=== PATIENT | male | born 1995 ===

== ENCOUNTER 2016-08-26 20:39 | Inpatient (IN) | payer OTHER ==
[~2016-08-26] VITALS: Ht 185.4 cm; Wt 79.2 kg
[2016-08-26] MEDS ORDERED: LORAZEPAM 0.5 MG TAB SL STA (22:21)
[2016-08-26] MEDS ORDERED: ATOM25CA PO (22:45)
[2016-08-26 23:09] LABS: BASO % 0.3 %; BASO ABS # 0.02 K/uL (0-0.2); COMPLETE YES; HEMATOCRIT 42.5 % (42-52); LYMPH % 30.1 %; LYMPH ABS # 1.77 K/uL (1.2-3.4); MEAN CORPUSCULAR HEMOGLOBIN 30.8 pg (25-34); MEAN CORPUSCULAR HGB CONC 35.1 g/dl (32-36); MEAN PLATELET VOLUME 11.2 fL (7.4-10.4); NEUT % 60.6 %; PLATELET COUNT 178 K/uL (130-400); RED BLOOD COUNT 4.83 M/uL (4.7-6.1); WHITE BLOOD COUNT 5.88 K/uL (4.8-10.8)
[2016-08-26 23:25] LABS: BUN/CREATININE RATIO 10.5 (10-20); CALCIUM 9.1 mg/dl (8.5-10.1); CREATININE 0.98 mg/dl (0.60-1.40); POTASSIUM 4.2 mmol/L (3.5-5.1)
[2016-08-26 23:36] LABS: ALB/GLOB RATIO 1.3 (0.9-2); THYROID STIMULATING HORMONE 1.02 uIu/ml (0.300-4.500)
[2016-08-27 00:36] LABS: MANUAL MICROSCOPIC REQUIRED? YES; URINE APPEARANCE CLEAR (CLEAR); URINE BILIRUBIN NEG (NEG); URINE COLOR YELLOW; URINE NITRITE NEG (NEG); URINE PH 7.5 (4.5-7.5); UROBILINOGEN NEG (NEG)
[2016-08-27 00:38] LABS: REVIEW REQ? NO; SULFASALICYLIC ACID NEG (NEG)
[2016-08-27 00:45] LABS: URINE RBC 0-4 /hpf (0-4)
[2016-08-27 00:46] LABS: URINE AMORPHOUS SEDIMENT PRESENT (NONE PRSENT); URINE BACTERIA NEG (NEG); ZZUR CULT IF INDIC CLEAN CATCH NO
[2016-08-27 01:04] VITALS: O2SAT 98
[2016-08-27 01:15] LABS: BENZODIAZEPINE, URINE POS (NEG); COCAINE,URINE NEG (NEG); PHENCYCLIDINE, URINE NEG (NEG)
[2016-08-27] MEDS ORDERED: BISMUTH SUBSALICYLATE PER ML OMNICELL CHARGE PO PRN (01:45)
[2016-08-27] MEDS ORDERED: ACETAMINOPHEN 325 MG TAB PO PRN (01:45)
[2016-08-27] MEDS ORDERED: hydrOXYzine HCL 25 MG TAB PO PRN (01:45)
[2016-08-27] MEDS ORDERED: NURSING VERBAL MED ORDER ONE (01:45)
[2016-08-27] MEDS ORDERED: MAGNESIUM HYDROXIDE SUSP 30 ML UDC PO PRN (01:45)
[2016-08-27] MEDS ORDERED: ALUMINUM/MAGNESIUM SUSP 30 ML UDC PO PRN (01:45)
[2016-08-27] MEDS ORDERED: SODIUM CHLORIDE 0.65% NA SOLN 45 ML (OCEAN) PRN (01:45)
[2016-08-27] MEDS: hydrOXYzine HCL 25 MG TAB PO PRN ×2 (02:22→22:49)
[2016-08-27 02:30] VITALS: BP 145/75; PULSE 83; TEMP 36.8; Ht 185.4 cm; Wt 79.2 kg
--- NOTE | 2016-08-27 03:43 | EMERGENCY ROOM VISIT NOTE ---
History Report prepared by Vanita: Ronnie Li Under the Supervision of: Dr. Porfirio Dougherty M.D. First contact with patient: 21:39 Chief Complaint: MENTAL HEALTH EVALUATION Stated Complaint: SUICIDAL THOUGHTS History of Present Illness The patient is a 20 year old male who presents to the Emergency Room with concerns over his mental status that began to worsen today at 1500 today, 7.5 hours prior to arrival. The patient admits that he has been having suicidal thoughts today, but denies any homicidal ideation. He has not experienced any single traumatic event that affected his current mental status, but states that stress with school is an issue. The patient has seen a psychiatrist regularly in the past who took him off of his prescription of Zoloft 2-3 months prior to this visit. She suggested that he start Cymbalta, but he declines. He claims that he was recently starting the loading for Strattera as a new medication. He denies abusing any drugs or alcohol recently but does admit to smoking marijuana regularly. The patient does note experiencing chills and constipation commonly. Source of History: patient Onset: 7.5 hours [employer] Position: other (Psych ) Timing: worsening Associated Symptoms: + chills Note: Pt admits to suicidal ideation. Review of Systems See HPI for pertinent positives and negatives. A total of ten systems were reviewed and were otherwise negative. Past Medical & Surgical Medical Problems: (1) Anxiety (2) Depression Anxiety Depression Family History FH: depression Social History Smoking Status: Never Smoker Marital Status: single Housing Status: lives with roommate Occupation Status: [employer] student Current/Historical Medications Scheduled Atomoxetine (Strattera), 25 MG PO DAILY Allergies Coded Allergies: No Known Allergies (Unverified , 08/26/16) Physical Exam Vital Signs Date Time Temp Pulse Resp B/P Pulse Ox O2 Delivery O2 Flow Rate FiO2 08/27/16 01:04 75 18 145/75 98 Room Air 08/26/16 22:53 82 18 142/92 96 Room Air 08/26/16 20:42 36.8 75 18 138/89 100 Room Air Physical Exam GENERAL: Awake, alert, well appearing, no distress HENT: Normocephalic, atraumatic. TM's normal. Oropharynx unremarkable. EYES: PERRL. EOMI. Normal conjunctiva. Sclera non-icteric. NECK: Supple. No nuchal rigidity. FROM. No JVD or bruit. RESPIRATORY: CTA CARDIAC: RRR. No murmur. ABDOMEN: Soft, non distended. No tenderness to palpation. No rebound or guarding. No masses. MUSCULOSKELETAL: Unremarkable. No edema. No discoloration. Gross motor strength symmetric. NEURO: Cranial nerves 2-12 grossly intact. Normal sensorium. No sensory or motor deficits noted. Speech normal. No pronator drift. SKIN: No rash or jaundice noted. LYMPH: No adenopathy. PSYCH: depressed mood flat affect. positive suicidal ideation. negative homicidal ideation. Medical Decision & Procedures Laboratory Results 08/26/16 22:47 Red Blood Count 4.83, Mean Corpuscular Volume 88.0, Mean Corpuscular Hemoglobin 30.8, Mean Corpuscular Hemoglobin Concent 35.1, Mean Platelet Volume 11.2, Neutrophils (%) (Auto) 60.6, Lymphocytes (%) (Auto) 30.1, Monocytes (%) (Auto) 7.0, Eosinophils (%) (Auto) 2.0, Basophils (%) (Auto) 0.3, Neutrophils # (Auto) 3.56, Lymphocytes # (Auto) 1.77, Monocytes # (Auto) 0.41, Eosinophils # (Auto) 0.12, Basophils # (Auto) 0.02 08/26/16 22:47 Test 08/26/16 22:47 08/27/16 00:12 White Blood Count 5.88 K/uL (4.8-10.8) Red Blood Count 4.83 M/uL (4.7-6.1) Hemoglobin 14.9 g/dL (14.0-18.0) Hematocrit 42.5 % (42-52) Mean Corpuscular Volume 88.0 fL (80-100) Mean Corpuscular Hemoglobin 30.8 pg (25-34) Mean Corpuscular Hemoglobin Concent 35.1 g/dl (32-36) Platelet Count 178 K/uL (130-400) Mean Platelet Volume 11.2 fL (7.4-10.4) Neutrophils (%) (Auto) 60.6 % Lymphocytes (%) (Auto) 30.1 % Monocytes (%) (Auto) 7.0 % Eosinophils (%) (Auto) 2.0 % Basophils (%) (Auto) 0.3 % Neutrophils # (Auto) 3.56 K/uL (1.4-6.5) Lymphocytes # (Auto) 1.77 K/uL (1.2-3.4) Monocytes # (Auto) 0.41 K/uL (0.11-0.59) Eosinophils # (Auto) 0.12 K/uL (0-0.5) Basophils # (Auto) 0.02 K/uL (0-0.2) RDW Standard Deviation 40.3 fL (36.4-46.3) RDW Coefficient of Variation 12.5 % (11.5-14.5) Immature Granulocyte % (Auto) 0.0 % Immature Granulocyte # (Auto) 0.00 K/uL (0.00-0.02) Anion Gap 7.0 mmol/L (3-11) Est Creatinine Clear Calc Drug Dose 137.0 ml/min Estimated GFR () 129.0 Estimated GFR (Non- 111.3 BUN/Creatinine Ratio 10.5 (10-20) Calcium Level 9.1 mg/dl (8.5-10.1) Total Bilirubin 0.3 mg/dl (0.2-1) Aspartate Amino Transf (AST/SGOT) 21 U/L (15-37) Alanine Aminotransferase (ALT/SGPT) 18 U/L (12-78) Alkaline Phosphatase 87 U/L (45-117) Total Protein 7.2 gm/dl (6.4-8.2) Albumin 4.0 gm/dl (3.4-5.0) Globulin 3.2 gm/dl (2.5-4.0) Albumin/Globulin Ratio 1.3 (0.9-2) Thyroid Stimulating Hormone (TSH) 1.020 uIu/ml (0.300-4.500) Ethyl Alcohol mg/dL < 3.0 mg/dl (0-3) Urine Color YELLOW Urine Appearance CLEAR (CLEAR) Urine pH 7.5 (4.5-7.5) Urine Specific [place] 1.020 (1.000-1.030) Urine Protein NEG (NEG) Urine Glucose (UA) NEG (NEG) Urine Ketones NEG (NEG) Urine Occult Blood NEG (NEG) Urine Nitrite NEG (NEG) Urine Bilirubin NEG (NEG) Urine Urobilinogen NEG (NEG) Urine Leukocyte Esterase NEG (NEG) Urine RBC 0-4 /hpf (0-4) Urine WBC 1-5 /hpf (0-5) Urine Epithelial Cells 0-5 /lpf (0-5) Urine Amorphous Sediment PRESENT (NONE PRSENT) Urine Bacteria NEG (NEG) Urine Opiates Screen NEG (NEG) Urine Methadone, Qualitative NEG (NEG) Urine Barbiturates NEG (NEG) Urine Phencyclidine (PCP) Level NEG (NEG) Ur Amphetamine/Methamphetamine POS (NEG) MDMA (Ecstasy) Screen POS (NEG) Urine Benzodiazepines Screen POS (NEG) Urine Cocaine Metabolite NEG (NEG) Urine Marijuana (THC) POS (NEG) Laboratory results reviewed by me Medications Administered Medications (Trade) Dose Ordered Sig/Yousuf Route Start Time Stop Time Status Last Admin Dose Admin Lorazepam (Ativan Tab) 0.5 mg NOW STAT SL 08/26/16 22:21 08/26/16 22:22 DC 08/26/16 22:27 0.5 MG ED Course 2215: The patient was evaluated in room A7. A complete history and physical exam was performed. 2221: Ordered Lorazepam 0.5 mg SL. 0022: [address] [place] [address] has evaluated the patient at this time, there are no grounds for a 302 petition. They will discuss the option of voluntary impatient treatment with the patient. 0142: The patient has been admitted to [address] [place] [address] voluntarily at this time. Medical Decision Triage Nursing notes reviewed and agree them. The patient's history was concerning for possible psychiatric disturbance. Differential diagnosis: Etiologies such as mood disorder, infection, hypoglycemia, electrolyte abnormalities, cardiac sources, intracerebral event, toxicologic, neurologic, as well as others were entertained. Physical examination: The physical examination was performed as above and was completely benign. No emergent medical pathologies were noted. ER treatment provided: Oral Ativan 0.5 mg 2 sublingual On reassessment the patient felt better. Diagnostic interpretation by me: The labs revealed an unremarkable CBC, chemistry panel, LFTs, TSH, urinalysis, Tylenol, salicylate, and alcohol levels. The patient had amphetamines, MDMA, benzodiazepine, and THC on urine drug screen. Imaging studies: Deferred Consultation: A consultation was placed with mental health. The patient was evaluated by mental health in the emergency department and they felt admission was warranted. The patient was voluntarily admitted for further treatment. The chart was completed utilizing BitGo voice recognition software. Grammatical errors, random word insertions, pronoun errors, and incomplete sentences are an occasional consequence of this system due to software limitations, ambient noise, and hardware issues. Any formal questions or concerns about the content, text, or information contained within the body of this dictation should be directly addressed to the physician for clarification. Consults Time Called: 21 Consulting Physician: [address] [place] [address] Bernardino Returned Call: 0022 I discussed the case with the [address] [place] [address] delegate at this time. She claims that there is no grounds for a 302 petition, but will suggest voluntary inpatient treatment for the patient. Impression Primary Impression: Mood disorder Scribe Attestation The scribe's documentation has been prepared under my direction and personally reviewed by me in its entirety. I confirm that the note above accurately reflects all work, treatment, procedures, and medical decision making performed by me. Departure Information Dispostion [facility] ([address] [place] [address] ) Referrals Center [facility] (PCP) Forms HOME CARE DOCUMENTATION FORM, IMPORTANT VISIT INFORMATION Patient Instructions [facility]
[2016-08-27 06:55] VITALS: BP_SYST 111; BP_SYST 121; BP_DIAS 75; BP_DIAS 80; PULSE 60; PULSE 80; TEMP 36.6
[2016-08-27] MEDS: ATOMOXETINE 25 MG CAP PO SCH (09:06)
[2016-08-27] MEDS ORDERED: ESCITALOPRAM OXALATE 10 MG TAB PO ONE (11:00)
--- NOTE | 2016-08-27 12:47 | HISTORY & PHYSICAL EXAMINATION ---
DATE OF ADMISSION: 08/27/2016 IDENTIFYING DATA: Kade Richardson is a 20-year-old [employer] student from the [place] area, who is admitted to our unit on a 201 voluntary commitment with worsening depression, suicidality and anxiety. Information is gathered from the patient and considered to be reliable. CHIEF COMPLAINT: "It started last year, although less intense." HISTORY OF PRESENT ILLNESS: Kade Richardson is a 20-year-old [employer] student who has a history of depression and anxiety, treated by Dr. Bryanna Garcia in his hometown. He has had several trials of medications including Wellbutrin and Zoloft and is currently only on Strattera that was started about 7 days ago for perceived ADD symptoms. He admits that he first started having problems with his depression last year during spring, when he admits that there was a 7-week period, where he barely left his apartment or went to class. He was in treatment at that time, but did start having suicidal ideation during that semester. He cites his stressors as academic. He has a finance major and is striving for the best possible GPA. He hangs out with other friends in the finance department to have a better GPA when he does and feels like he is the lowest performer in his group. He also has financial stressors, describes feeling homesick, feeling like he does not know what to do. He does not have a good relationship with his mother, who he describes as a functional alcoholic, who turned to alcohol after his own mother when Kade was in middle school. He feels that she has been an absent parent since then. He also notes he has nothing to look forward to. Since returning to school in June, he notes that his depression and anxiety have continued to worsen. He describes his mood as "a rollercoaster." He had been talking with his psychiatrist at home and was wondering if some of his inattentiveness and poor concentration were as a result of ADD and so, she is trialing him on Strattera 25 mg daily that he has been on for the last week or so. He feels that maybe his depression got slightly better with the Strattera, but denies that it has exacerbated his anxiety. Yesterday, he said that it was a bad day. Sundays are normally a bad day because there is a fraternity meeting and he devotes that day to focusing on schoolwork. He generally anticipate it with anxiety and dread. He had been talking with his father by phone and telling him about his depression and his thoughts about suicide and father encouraged him to call the emergency line, which he did. They recommended he go to the Emergency Room and so, the patient took an Uber to our hospital. The patient remains depressed and anxious today. He admits to suicidal thoughts, but denies that he has plan or intent. He reports his sleep has been "minimum" and by this, he means he gets about 5 or 7 hours of broken sleep per night. His appetite has been poor, but his weight has recently been stable. He reports chronic anxiety, dating back to middle school at least. He experiences his anxiety with elevated heart rate, sweating, and feeling nervous. He generally uses vaping to cope. He endorses only rare panic attacks, saying he has only ever had a handful and cannot remember any precipitating factors. He denies any auditory or visual hallucination, but tends to over think things and calls this as "paranoia." He gives an example where he was over thinking that his presentation while talking about his psychiatric symptoms worrying that they would be interpreted wrongly. He says that he has a "temper," but denies that he has ever acted inappropriately in anger either verbally or behaviorally. He reports poor focus, concentration, and saying that he is inattentive. He has trouble in social situations, remembering names or will lose track of the conversation in mid tracks. He denies that he has ever engaged in self-injurious behaviors. He has never struggled with any eating disordered behaviors. He denies discrete episodes of euphoric mood, sleeplessness or pleasure seeking behaviors that could be congruent with bipolar disorder. CURRENT MEDICATIONS: Strattera 25 mg daily. PAST PSYCH HISTORY: Again, sees Dr. Bryanna Garcia in the [place] area. He does not currently have a therapist. He has never been hospitalized for mental health reasons. He has never made a suicide attempt. There is no evidence of violence to self or others in the last 6 months. PRIOR MEDICATION TRIALS: 1. Wellbutrin -- had eye pain and worrying that he was having seizures. 2. Zoloft -- nausea, stopped after 2 days. ACCESS TO GUNS: Denies. ALLERGIES: NKDA. PAST MEDICAL HISTORY: 1. Denies for personal history of obesity, diabetes, dyslipidemia, hypertension, or cardiovascular disease. 2. History of a slight concussion in his freshman year in high school, but without sequelae including seizures. 3. Tobacco use -- uses a vaporizer, the equivalent of 1 pack of cigarettes per day. FAMILY HISTORY: Positive for mother with anxiety, depression, and alcohol abuse. There is no family history for suicide. Medically, maternal grandmother has diabetes, both parents have hypertension, paternal grandfather had a stroke, and father has dyslipidemia. There is no family history for obesity. SUBSTANCE ABUSE HISTORY: The patient endorses the use of alcohol 1-2 times per week. Last use was on Saturday. He generally drinks beer. He has never suffered any legal consequences as a result of alcohol. He also endorses the regular use of marijuana, last on Saturday. He also took a Vyvanse that he got from a friend. PERSONAL HISTORY: The patient grew up in [place]. He was raised by both his mother and father. His mother works for [employer] and father is a retired middle school music teacher. He does not have a good relationship with his mother, barely talking with her, but does report a good relationship with his father. He is the oldest of 3 sons. He has finance major with a current GPA of 3.69. He does not work outside of school. He is not currently in a relationship, although he says "it is complicated." He has never been and has no children. He is of the [place] faust[place]. There are no legal concerns. Psychological trauma history includes having felt neglected by his mother in middle school after she lost her own mother. MENTAL STATUS EXAMINATION: A 20-year-old gentleman with short curly hair, who is appropriately dressed. Gait and station are within normal limits. Eye contact is good. Motor behavior is unremarkable. No abnormal muscle movements. Speech is of normal rate, volume, and tone. Affect is flat. Mood is depressed and anxious. Thought process is organized and goal directed. He denies thought disorder in the form of hallucinations or delusions. He endorses suicidal thoughts, but no plan or intent at this time. He denies homicidal ideation. Today, he is fully oriented. Memory functions are intact. Fund of knowledge is intact. Intelligence is estimated to be average. Insight and judgment are currently impaired. VITAL SIGNS: Temperature 36.6, pulse 60 supine and 80 sitting, and blood pressure 111/75 supine and 121/80 sitting. LABORATORIES: 1. CBC with diff -- notable only for elevated MPV of 11.2. 2. Chem profile -- within normal limits. 3. TSH -- within normal limits. 4. Toxicology -- positive for amphetamines (took Vyvanse), MDMA (frequently a false positive), benzodiazepines (received Ativan in the ER prior to drug screen), and cannabis, which he admits to smoking. 5. Urinalysis -- without evidence of infection. REVIEW OF SYSTEMS: Positive for constipation with last bowel movement yesterday. He also believes he experienced some retrograde ejaculation saying that he thinks he seems ejaculate in his urine. A minimum of 10 systems has been reviewed and otherwise found to be negative. PHYSICAL EXAMINATION: Exam performed by Dr. Dougherty in the Emergency Room has been reviewed and accepted for our purposes here in the mental health unit. PATIENT'S STRENGTHS AND NEEDS: 1. Strengths -- intelligence, desire to do well, good relationship with father. 2. Needs -- to be and more consistent local psychiatric treatment. RISK ASSESSMENT: 1. Risk factors -- male, , single, chronic mental illness, use of cannabis, and high anxiety. 2. Protective factors -- no access to guns, no comorbid medical conditions impairing recovery, no history of hospitalizations or suicide, good rapport with father, and doing well in school. IMPRESSION: A 20-year-old [employer] student admitted with severe depression, anxiety, and suicidality. We have reviewed multiple treatment options including an SNRI, a second trial of an SSRI, and therapy. He is willing for a second trial of an SSRI and we will order Lexapro 5 mg daily, titrating as tolerated. We will start low in deference to his history of nausea that caused him to stop taking Zoloft. Risks, benefits, and alternatives have been reviewed and accepted including the risk for worsening depression and suicidal thinking in young people. I have recommended that he get a local psychiatric provider and therapist until he goes home for the summer, where he can resume treatment with Dr. Garcia. I have recommended he not use alcohol or cannabis moving forward while he is on medications. I have also asked him to consider a family meeting with his father, which he will consider. He also admits to using a legal substance called Kratom, which is derived from the coffee plant, which he uses to help stimulate him in the morning. We will recommend he stop using this as well. At this time, the patient requires inpatient mental health treatment due to the severity of his condition and the risk for self-harm if discharged. DIAGNOSES: 1. Major depressive disorder, recurrent, severe, without psychotic features. 2. Generalized anxiety disorder. 3. Cannabis abuse. PLAN: Has been reviewed with Dr. Tracy Fairchild. 1. Depression. a. Start Lexapro 5 mg daily, titrating slowly to avoid nausea. b. Encourage participation in group and individual counseling. c. Q. 15 minute checks for safety. d. The patient should have a local psychiatric provider and therapy and return to his outpatient providers at home during the summer. e. Family meeting. g. Assist the patient to explore additional healthy coping strategies. 2. Generalized anxiety disorder. a. Vistaril p.r.n. for anxiety or sleep. b. Assist the patient to explore mindfulness, deep breathing and relaxation exercises. c. Lexapro as above. 3. Cannabis abuse. a. Recommend abstinence. We have discussed the impact of substances to mood and anxiety. INITIAL HOSPITAL CARE: [id number]. [facility]
[2016-08-27] MEDS ORDERED: NICOTINE 21 MG/24 HR TDSY TD ONE (14:03)
[2016-08-27] MEDS ORDERED: NICOTINE POLACRILEX 2 MG GUM MT PRN (14:15)
[2016-08-28 06:58] VITALS: BP_SYST 114; BP_SYST 115; BP_DIAS 67; BP_DIAS 82; PULSE 65; PULSE 85; TEMP 36.6
[2016-08-28] MEDS ORDERED: ESCITALOPRAM OXALATE 10 MG TAB PO SCH (09:00)
[2016-08-28] MEDS: ATOMOXETINE 25 MG CAP PO SCH (09:02)
[2016-08-28] MEDS: NICOTINE 21 MG/24 HR TDSY TD SCH (09:20)
--- NOTE | 2016-08-28 13:08 | Psychiatric Progress Notes ---
Progress Note Date of Service Aug 28, 2016. Interval History 20 yo male admitted voluntarily on 08/27 with severe depression and suicidality in the context of academic stress Chief Complaint "Calmer". Subjective Patient was seen & assessed interval progress reviewed with Treatment Team. Kade says that he is feeling somewhat calmer today after adjusting to the unit. He is tolerating the start of Lexapro without side effects. He remains tired and asks if its the lexapro, but at the same time says that he remains sleep impaired, sleeping for only 1 hr at a time. He is having periods were he feels that his heart if racing, but wonders if its the nicotine patch that he is wearing. He denies acute SI today and says that it usually comes when he is worrying about something or trying to understand what he is doing with school and life. Appetite has been good and denies N/V. Review of Systems Constitutional: + fatigue ENT: No dental problems, No hearing loss, No nasal symptoms, No problem reported, No sore throat, No tinnitus, No trouble swallowing, No unusual epistaxis Respiratory: No cough, No dyspnea at rest, No dyspnea on exertion, No hemoptysis, No problem reported, No shortness of breath, No sputum, No wheezing Cardiovascular: + problem reported (racing heart) Abdomen: No GI bleeding, No constipation, No diarrhea, No nausea, No pain, No problem reported, No vomiting Musculoskeletal: No calf pain, No joint pain, No muscle pain, No problem reported, No swelling Neurologic: No balance problems, No memory loss, No numbness/tingling, No paralysis, No problem reported, No vertigo, No weakness Psychiatric: + anxiety, + depression symptoms, + insomnia Integumentary: No bleeding, No color change, No itch, No new/changing skin lesions, No problem reported, No rash Sleep Information Total Hours of Sleep: 5.00 Meal Information Percent of Breakfast Consumed: 100 Percent of Lunch Consumed: 100 Percent of Dinner Consumed: 100 Mental Status Exam During interview pt is: alert and oriented, cooperative Appearance: appropriately dressed, appropriately groomed Eye contact is: good Motor behavior is: steady gait & station, no abnormal motor movements Speech: normal in rate, rhythm & volume Affect: depressed, flat Mood is: depressed Thought process: clear, coherent Thought content: reality based without delusions Suicidal thought are: denied Homicidal thoughts are: denied Hallucinations: denies auditory, denies visual Cognition: memory grossly intact, attention grossly intact Intelligence estimated to be: average Insight: impaired Judgement: impaired Impression Adjusting to the unit. Has not had SI since admission, but likely because he has been removed from the stressful school environment. Tolerating Lexapro 5 mg. X 2 and so will increase to 10 mg. for tomorrow. Has not consented to family meeting with father but has been in contact with him. Encouraged the use of prn vistaril for sleep. Plan (1) Major depressive disorder, recurrent severe without psychotic features 08/28 -Increase Lexapro to 10 mg. daily -Q 15 min checks for safety - Encourage participation in group and individual counseling - The patient will need psychiatric aftercare locally if he is staying in school - Family meeting - Assist the patient to explore additional healthy coping strategeis (2) MAGDA (generalized anxiety disorder) 08/28 -Vistaril prn for anxiety and sleep - Assist the patient to explore mindfulness, deep breathing and relaxation - Lexapro as above (3) Cannabis abuse 08/28 - Recommend abstinence - Discussed the impact of substances to mood. Visit Code E&M Code: 29759 Inventory Assets Strengths: Intelligence, willingness to engage in treatment Needs: to abstain from cannabis Risk Factors Assessment Male: Yes : Yes /single/: Yes Higher / Fall in social status: No Access to guns: No Health problems: No Mental Health Diagnoses: Yes Substance use disorders: Yes Previous attempt: No Previous psychiatric stay: No Hopelessness: Yes Protective Factors Assessment Roman Catholic beliefs: Yes : No Responsible for young children: No Employed: No Stable relationships: No Supportive family: Yes Data Vital Signs Last 24 Hrs: Date Time Temp Pulse Resp B/P Pulse Ox O2 Delivery O2 Flow Rate FiO2 08/28/16 06:58 36.6 65 16 114/67 85 115/82 Meds Administered Last 24 Hrs: Meds Administered (Past 24Hrs) Medications (Trade) Dose Ordered Sig/Yousuf Route Start Time Stop Time Status Last Admin Dose Admin Lorazepam (Ativan Tab) 0.5 mg NOW STAT SL 08/26/16 22:21 08/26/16 22:22 DC 08/26/16 22:27 0.5 MG Hydroxyzine HCl (Vistaril Tab) 50 mg HSZ PRN PO 08/27/16 01:45 09/26/16 01:44 08/27/16 22:49 50 MG Hydroxyzine HCl (Vistaril Tab) 25 mg Q4H PRN PO 08/27/16 01:45 09/26/16 01:44 08/27/16 20:45 25 MG Atomoxetine HCl (Strattera Cap) 25 mg QAM PO 08/27/16 09:00 09/26/16 08:59 08/28/16 09:02 25 MG Escitalopram Oxalate (Lexapro Tab) 5 mg QAM PO 08/28/16 09:00 09/27/16 08:59 08/28/16 09:02 5 MG Escitalopram Oxalate (Lexapro Tab) 5 mg 1100 ONCE PO 08/27/16 11:00 08/27/16 11:19 DC 08/27/16 11:44 5 MG Nicotine (Nicoderm Cq 21MG Patch) 1 patch QAM TD 08/28/16 09:00 09/27/16 08:59 08/28/16 09:20 1 PATCH Nicotine (Nicoderm Cq 21MG Patch) 1 patch 1403 ONCE TD 08/27/16 14:03 08/27/16 14:09 DC 08/27/16 14:31 1 PATCH Miscellaneous (Remove Nicoderm Patch) 1 ea HS N/A 08/27/16 22:00 09/26/16 21:59 08/27/16 21:15 1 EA Nicotine Polacrilex (Nicorette 2MG Gum) 1 piece Q2HWA PRN MT 08/27/16 14:15 09/26/16 14:14 08/27/16 20:45 1 PIECE Lab Results Last 24 Hrs: 08/26/16 22:47 Red Blood Count 4.83, Mean Corpuscular Volume 88.0, Mean Corpuscular Hemoglobin 30.8, Mean Corpuscular Hemoglobin Concent 35.1, Mean Platelet Volume 11.2, Neutrophils (%) (Auto) 60.6, Lymphocytes (%) (Auto) 30.1, Monocytes (%) (Auto) 7.0, Eosinophils (%) (Auto) 2.0, Basophils (%) (Auto) 0.3, Neutrophils # (Auto) 3.56, Lymphocytes # (Auto) 1.77, Monocytes # (Auto) 0.41, Eosinophils # (Auto) 0.12, Basophils # (Auto) 0.02 08/26/16 22:47 Test 08/26/16 22:47 08/27/16 00:12 White Blood Count 5.88 K/uL (4.8-10.8) Red Blood Count 4.83 M/uL (4.7-6.1) Hemoglobin 14.9 g/dL (14.0-18.0) Hematocrit 42.5 % (42-52) Mean Corpuscular Volume 88.0 fL (80-100) Mean Corpuscular Hemoglobin 30.8 pg (25-34) Mean Corpuscular Hemoglobin Concent 35.1 g/dl (32-36) Platelet Count 178 K/uL (130-400) Mean Platelet Volume 11.2 fL (7.4-10.4) Neutrophils (%) (Auto) 60.6 % Lymphocytes (%) (Auto) 30.1 % Monocytes (%) (Auto) 7.0 % Eosinophils (%) (Auto) 2.0 % Basophils (%) (Auto) 0.3 % Neutrophils # (Auto) 3.56 K/uL (1.4-6.5) Lymphocytes # (Auto) 1.77 K/uL (1.2-3.4) Monocytes # (Auto) 0.41 K/uL (0.11-0.59) Eosinophils # (Auto) 0.12 K/uL (0-0.5) Basophils # (Auto) 0.02 K/uL (0-0.2) RDW Standard Deviation 40.3 fL (36.4-46.3) RDW Coefficient of Variation 12.5 % (11.5-14.5) Immature Granulocyte % (Auto) 0.0 % Immature Granulocyte # (Auto) 0.00 K/uL (0.00-0.02) Anion Gap 7.0 mmol/L (3-11) Est Creatinine Clear Calc Drug Dose 137.0 ml/min Estimated GFR () 129.0 Estimated GFR (Non- 111.3 BUN/Creatinine Ratio 10.5 (10-20) Calcium Level 9.1 mg/dl (8.5-10.1) Total Bilirubin 0.3 mg/dl (0.2-1) Aspartate Amino Transf (AST/SGOT) 21 U/L (15-37) Alanine Aminotransferase (ALT/SGPT) 18 U/L (12-78) Alkaline Phosphatase 87 U/L (45-117) Total Protein 7.2 gm/dl (6.4-8.2) Albumin 4.0 gm/dl (3.4-5.0) Globulin 3.2 gm/dl (2.5-4.0) Albumin/Globulin Ratio 1.3 (0.9-2) Thyroid Stimulating Hormone (TSH) 1.020 uIu/ml (0.300-4.500) Ethyl Alcohol mg/dL < 3.0 mg/dl (0-3) Urine Color YELLOW Urine Appearance CLEAR (CLEAR) Urine pH 7.5 (4.5-7.5) Urine Specific [place] 1.020 (1.000-1.030) Urine Protein NEG (NEG) Urine Glucose (UA) NEG (NEG) Urine Ketones NEG (NEG) Urine Occult Blood NEG (NEG) Urine Nitrite NEG (NEG) Urine Bilirubin NEG (NEG) Urine Urobilinogen NEG (NEG) Urine Leukocyte Esterase NEG (NEG) Urine RBC 0-4 /hpf (0-4) Urine WBC 1-5 /hpf (0-5) Urine Epithelial Cells 0-5 /lpf (0-5) Urine Amorphous Sediment PRESENT (NONE PRSENT) Urine Bacteria NEG (NEG) Urine Opiates Screen NEG (NEG) Urine Methadone, Qualitative NEG (NEG) Urine Barbiturates NEG (NEG) Urine Phencyclidine (PCP) Level NEG (NEG) Ur Amphetamine/Methamphetamine POS (NEG) MDMA (Ecstasy) Screen POS (NEG) Urine Benzodiazepines Screen POS (NEG) Urine Cocaine Metabolite NEG (NEG) Urine Marijuana (THC) POS (NEG)
[2016-08-28] MEDS: hydrOXYzine HCL 25 MG TAB PO PRN (22:51)
[2016-08-29 06:56] VITALS: BP_SYST 117; BP_SYST 123; BP_DIAS 78; BP_DIAS 84; PULSE 62; PULSE 82; TEMP 36.4
--- NOTE | 2016-08-29 08:32 | Psychiatric Progress Notes ---
Progress Note Date of Service Aug 29, 2016. Interval History 20 yo male admitted voluntarily on 08/27 with severe depression and suicidality in the context of academic stress Chief Complaint "[]". Subjective Patient was seen & assessed interval progress reviewed with Treatment Team. Staff report he slept 6 hours with Vistaril, and is going to groups and participating appropriately. He agreed to referrals for therapy and psychiatry. He has a meeting with his father today, and doesn't want him to know about his drug use. Lexapro has been tolerated well and was increased to 10mg for today. Sleep Information Total Hours of Sleep: 6.00 Meal Information Percent of Breakfast Consumed: 100 Percent of Lunch Consumed: 100 Percent of Dinner Consumed: 95 Mental Status Exam During interview pt is: alert and oriented, cooperative Appearance: appropriately dressed, appropriately groomed Eye contact is: good Motor behavior is: steady gait & station, no abnormal motor movements Speech: normal in rate, rhythm & volume Affect: depressed, flat Mood is: depressed Thought process: clear, coherent Thought content: reality based without delusions Suicidal thought are: denied Homicidal thoughts are: denied Hallucinations: denies auditory, denies visual Cognition: memory grossly intact, attention grossly intact Intelligence estimated to be: average Insight: impaired Judgement: impaired Impression Adjusting to the unit. Has not had SI since admission, but likely because he has been removed from the stressful school environment. Tolerating Lexapro 5 mg. X 2 and so will increase to 10 mg. for tomorrow. Has not consented to family meeting with father but has been in contact with him. Encouraged the use of prn vistaril for sleep. Plan (1) Major depressive disorder, recurrent severe without psychotic features 08/28 -Increase Lexapro to 10 mg. daily -Q 15 min checks for safety - Encourage participation in group and individual counseling - The patient will need psychiatric aftercare locally if he is staying in school - Family meeting - Assist the patient to explore additional healthy coping strategies (2) MAGDA (generalized anxiety disorder) 08/28 -Vistaril prn for anxiety and sleep - Assist the patient to explore mindfulness, deep breathing and relaxation - Lexapro as above (3) Cannabis abuse 08/28 - Recommend abstinence - Discussed the impact of substances to mood. Discharge / Aftercare Planning Therapist: Name: [facility] Date of Appointment: Sep 06, 2016 Time of Appointment: 1230 Appointment Notes: [address], [place] [address] Inventory Assets Strengths: Intelligence, willingness to engage in treatment Needs: to abstain from cannabis Risk Factors Assessment Male: Yes : Yes /single/: Yes Higher / Fall in social status: No Access to guns: No Health problems: No Mental Health Diagnoses: Yes Substance use disorders: Yes Previous attempt: No Previous psychiatric stay: No Hopelessness: Yes Protective Factors Assessment Pentecostalism beliefs: Yes : No Responsible for young children: No Employed: No Stable relationships: No Supportive family: Yes Data Vital Signs Last 24 Hrs: Date Time Temp Pulse Resp B/P Pulse Ox O2 Delivery O2 Flow Rate FiO2 08/29/16 06:56 36.4 62 16 123/78 82 117/84 Meds Administered Last 24 Hrs: Meds Administered (Past 24Hrs) Medications (Trade) Dose Ordered Sig/Yousuf Route Start Time Stop Time Status Last Admin Dose Admin Atomoxetine HCl (Strattera Cap) 25 mg QAM PO 08/27/16 09:00 09/26/16 08:59 08/28/16 09:02 25 MG Escitalopram Oxalate (Lexapro Tab) 5 mg QAM PO 08/28/16 09:00 08/28/16 13:09 DC 08/28/16 09:02 5 MG Escitalopram Oxalate (Lexapro Tab) 5 mg 1100 ONCE PO 08/27/16 11:00 08/27/16 11:19 DC 08/27/16 11:44 5 MG Nicotine (Nicoderm Cq 21MG Patch) 1 patch QAM TD 08/28/16 09:00 09/27/16 08:59 08/28/16 09:20 1 PATCH Nicotine (Nicoderm Cq 21MG Patch) 1 patch 1403 ONCE TD 08/27/16 14:03 08/27/16 14:09 DC 08/27/16 14:31 1 PATCH Miscellaneous (Remove Nicoderm Patch) 1 ea HS N/A 08/27/16 22:00 09/26/16 21:59 08/28/16 21:28 1 EA Nicotine Polacrilex (Nicorette 2MG Gum) 1 piece Q2HWA PRN MT 08/27/16 14:15 09/26/16 14:14 08/27/16 20:45 1 PIECE
[2016-08-29] MEDS: ATOMOXETINE 25 MG CAP PO SCH (08:45)
[2016-08-29] MEDS: NICOTINE 21 MG/24 HR TDSY TD SCH ×2 (08:47→11:32)
[2016-08-29] MEDS ORDERED: ESCITALOPRAM OXALATE 10 MG TAB PO SCH (09:00)
--- NOTE | 2016-08-29 13:04 | Discharge Instructions ---
Discharge Information Report Includes Report will include the: Discharge Instructions & Summary Admission Admission Date / Time: Aug 27, 2016 at 01:32 Reason for Admission: Anxiety Nos Discharge Discharge Diagnosis / Problem: Depression, egneralized anxiety disorder, cannabus use disorder. Condition at Discharge: Fair Discharge Goals Goal(s): Improve function, Improve disease control, Learn about illness, Therapeutic intervention Activity Recommendations Activity Limitations: per Instructions/Follow-up section . Instructions / Follow-Up Instructions / Follow-Up . SPECIAL CARE INSTRUCTIONS: 1. Follow through with your scheduled aftercare appointments. If unable to keep an appointment, please call to reschedule. 2. Take your medication only as prescribed. Medication should not be changed or stopped without the approval of your doctor. In the event of worsening symptoms or concerns about side effects, contact your doctor immediately. 3. Utilize new healthy coping skills, anger management skills, and stress management skills learned during your hospitalization. Journal feelings and process them with a support person. Identify stressors or situations that may result in relapse, deterioration or inappropriate behaviors and develop a plan to deal with those issues. 4. If your coping skills are ineffective and you are in crisis, contact your outpatient providers for direction. If unable to reach your providers, please call the CAN HELP LINE AT or go to the closest Emergency Room. 5. Avoid alcohol and un-prescribed drugs, including marijuana. 6. You have been provided with the Mental Health Advance Directives Pamphlet for your review. AFTERCARE APPOINTMENTS: * Please call your insurance company prior to your scheduled appointment to confirm your aftercare providers are covered. Take your insurance information to your appointments. . Discharge / Aftercare Planning Primary Care Physician: Name: [facility] Phone Number: [phone] Appointment Notes: as needed Psychiatrist: Name: Dr Syd Lundberg, [address], [address], [place] [address] Phone Number: [phone] Date of Appointment: Sep 06, 2016 Time of Appointment: 3pm Appointment Notes: take ID card, parents' and SS number, Copay Therapist: Name Of Therapist: Porfirio at [facility] - take insurance card w you Date of Appointment: Sep 06, 2016 Time of Appointment: 1230 Appointment Comments: [address], [place] [address] Other: Name of Appointment #1: [facility] [employer] Date of Appointment #1: Sep 11, 2016 Time of Appointment #1: 11:00 Appointment #1 Notes: Presley Adorno . Follow-Up Care Plan for Follow-Up Care: See above. Current Hospital Diet Patient's current hospital diet: Regular Diet Discharge Diet Recommended Diet: Regular Diet Procedures Procedures Performed: No Pending Studies Pending Studies at Discharge: No Medical Emergencies . Who to Call and When: Medical Emergencies: For questions or emergencies related to your hospital stay, please contact the Inpatient Behavioral Health Unit at [phone]. A machine ii engraver is on-call 31/12 for the Behavioral Health Unit for emergencies At any time you feel your situation is an emergency, you may also call 911 immediately. . Non-Emergent Contact Non-Emergency issues call your: Psychiatrist, Therapist Advance Directives Existing Advance Directive: No Do You Have an Existing Mental: No Existing Living Will: No Existing Power of Infantry Officer: No Advance Directives Info Given: To Pt/S.O. Discharge Summary Admission HPI Per the Admitting provider: Please see admission H&P. Admission Exam Per the Admitting provider: Please see admission H&P. Hospital Course (1) Major depressive disorder, recurrent severe without psychotic features 08/28 - Increase Lexapro to 10 mg. daily - Q 15 min checks for safety - Encourage participation in group and individual counseling - The patient will need psychiatric aftercare locally if he is staying in school - Family meeting - Assist the patient to explore additional healthy coping strategies 08/29 - Continue Lexapro 10mg daily. Had long discussion of the risks, benefits, and potential side effects of medication. The patient feels he is very sensitive to medications, and worries that every somatic symptoms might be a side effect. Encouraged him to continue the medication at least until his appointment with Dr. Velarde next week, and again reminded him that it will take 4 -6 weeks to see the full effect of the antidepressant. - Patient would like to stop Strattera, as does not think it is helping, and wants to minimize the number of medications he is on. - Family meeting with father held, he supports discharge. - Patient able to review safety plan and coping skills. He is requesting discharge. - Has outpatient therapy and psychiatry appointments next week 09/06. (2) MAGDA (generalized anxiety disorder) 08/28 - Vistaril prn for anxiety and sleep - Assist the patient to explore mindfulness, deep breathing and relaxation - Lexapro as above (3) Cannabis abuse 08/28 - Recommend abstinence - Discussed the impact of substances to mood. Risk Factors Assessment Male: Yes : Yes /single/: Yes Higher / Fall in social status: No Access to guns: No Health problems: No Mental Health Diagnoses: Yes Substance use disorders: Yes Previous attempt: No Previous psychiatric stay: No Hopelessness: Yes Protective Factors Assessment Taoist beliefs: Yes : No Responsible for young children: No Employed: No Stable relationships: No Supportive family: Yes Good rapport with provider: No Absence of risk factors above: Yes (risk factors were mitigated by treating mood and anxiety with medication, involving the patient in groups and therapy on the unit, working on healthy coping skills and her discharge safety plan, referring him for outpatient therapy and psychiatry, and having a family meeting with his father. He is denying suicidality, reports improvements in mood and anxiety, is eating and sleeping well, and performing ADLs independently. He is willing to follow-up with outpatient providers. He is requesting discharge, and as he is no longer at acute risk of harm to himself, can be managed as an outpatient at this time.) Day of Discharge Assessment Hospital course: On admission, the patient was started on escitalopram for depression and anxiety. He was started on a low dose of 5 mg daily, as he was anxious about having side effects, and is it was tolerated well, it was increased to 10 mg daily. He reported improvement in mood, anxiety, and felt more calm on the unit. He continued to feel tired during the day, and wondered if it was a side effect, also wondering if his heart racing was a side effect of medications. Appetite was good on the unit, he continued to have poor sleep at night. He attended groups and interacted appropriately with staff and peers. He had a family meeting with his father by phone the day of discharge. Day of discharge assessment: Patient reports that his mood is improved from admission and describes it as "calm." He denies suicidal thoughts. He is not sure about taking medication, listing multiple concerns, including worries about side effects, as he felt he had a brief period of "staring off into space" during group today and feels tired during the day, wondering if these are side effects. He also has a history of side effects on other medications, so feels he is more sensitive to medications than most. He has a long discussion about what he could expect from antidepressant if it is working, as well as the risk of side effects, and the difficulty in determining if the medication is working or if it is causing side effects after only a couple doses. He is willing to follow-up with outpatient providers, and has both therapy and psychiatric appointments next week. He denies thoughts of harming himself or anyone else, and is requesting discharge today, wanting to return to class tomorrow. Reviewed the family meeting with his social work assistant, who states that both the patient and his father think he is doing better, and father is in favor of discharge. Well nourished, well developed WM appearing stated age. Casually dressed and adequately groomed. Calm and cooperative. Seated in NAD, with fair eye contact and no abnormal movements. Speech is normal rate, volume, and tone. Mood is "calm," and affect is stable and congruent. Thoughts are linear, logical and goal directed. The patient denied suicidal and homicidal ideation and was able to safety plan. No paranoia, delusions, or hallucinations, and did not appear to be responding to internal stimuli. Cognition was grossly intact. Alert and oriented to person, place and time. Intelligence is consistent with level of education. Insight and and judgment are fair. Laboratory Test 08/26/16 22:47 08/27/16 00:12 White Blood Count 5.88 Red Blood Count 4.83 Hemoglobin 14.9 Hematocrit 42.5 Mean Corpuscular Volume 88.0 Mean Corpuscular Hemoglobin 30.8 Mean Corpuscular Hemoglobin Concent 35.1 Platelet Count 178 Mean Platelet Volume 11.2 H Neutrophils (%) (Auto) 60.6 Lymphocytes (%) (Auto) 30.1 Monocytes (%) (Auto) 7.0 Eosinophils (%) (Auto) 2.0 Basophils (%) (Auto) 0.3 Neutrophils # (Auto) 3.56 Lymphocytes # (Auto) 1.77 Monocytes # (Auto) 0.41 Eosinophils # (Auto) 0.12 Basophils # (Auto) 0.02 RDW Standard Deviation 40.3 RDW Coefficient of Variation 12.5 Immature Granulocyte % (Auto) 0.0 Immature Granulocyte # (Auto) 0.00 Sodium Level 140 Potassium Level 4.2 Chloride Level 102 Carbon Dioxide Level 31 Anion Gap 7.0 Blood Urea Nitrogen 10 Creatinine 0.98 Est Creatinine Clear Calc Drug Dose 137.0 Estimated GFR () 129.0 Estimated GFR (Non- 111.3 BUN/Creatinine Ratio 10.5 Random Glucose 72 Calcium Level 9.1 Total Bilirubin 0.3 Aspartate Amino Transferase (AST) 21 Alanine Aminotransferase (ALT) 18 Alkaline Phosphatase 87 Total Protein 7.2 Albumin 4.0 Globulin 3.2 Albumin/Globulin Ratio 1.3 Thyroid Stimulating Hormone (TSH) 1.020 Ethyl Alcohol mg/dL < 3.0 Urine Color YELLOW Urine Appearance CLEAR Urine pH 7.5 Urine Specific [place] 1.020 Urine Protein NEG Urine Glucose (UA) NEG Urine Ketones NEG Urine Occult Blood NEG Urine Nitrite NEG Urine Bilirubin NEG Urine Urobilinogen NEG Urine Leukocyte Esterase NEG Urine RBC 0-4 Urine WBC 1-5 Urine Epithelial Cells 0-5 Urine Amorphous Sediment PRESENT H Urine Bacteria NEG Urine Opiates Screen NEG Urine Methadone, Qualitative NEG Urine Barbiturates NEG Urine Phencyclidine (PCP) Level NEG Urine Amphetamines Confirmation Pending Ur Amphetamine/Methamphetamine POS H Urine Methamphetamine Confirmation Pending Urine MDE-amphetamine (MDEA) Pending Ur Methylenedioxyamphetamine (MDA) Pending MDMA (Ecstasy) Screen POS H Methylenedioxymethamphetamine (MDMA Pending Urine Hydroxyalprazolam Confirm Pending Urine Benzodiazepines Screen POS H 7-Amino Clonazepam Level Pending Urine Nordiazepam Confirmation Pending Urine Hydroxyethylflurazepam Level Pending Urine Lorazepam (GC/MS) Pending Urine Oxazepam Confirm (GC/MS) Pending Urine Temazepam Confirmation Pending Urine Hydroxytriazolam Confirmation Pending Urine Hydroxymidazolam Confirmation Pending Urine Cocaine Metabolite NEG Urine Marijuana (THC) POS H Urine Marijuana (THC Carboxy Acid) Pending Total Time Total Time Spent (min): Greater than 30 minutes Total Time Included: examination of the patient, discharge planning, medication reconciliation Tobacco Cessation at Discharge FDA approved Prescription: patient refused
[2016-08-29] MEDS ORDERED: LXP10 PO (13:08)
[2016-08-31 19:36] LABS: HYDROXYETHYLFLURAZEPAM CONF NEGATIVE NG/ML (CUTOFF=50); HYDROXYMIDAZOLAM NEGATIVE NG/ML (CUTOFF=50); HYDROXYTRIAZOLAM CONF NEGATIVE NG/ML (CUTOFF=50); TEMAZEPAM CONF NEGATIVE NG/ML (CUTOFF=50)
== END 2016-08-29 13:42 | disposition home or self-care (01) | DRG 885 ==
LOC: C.EDB 20:41 → MERGE 08-27 01:32 → C.MHU 08-27 01:32
PROVIDERS: ADMIT Psychiatry & Neurology Psychiatry; ATTEND Psychiatry & Neurology Psychiatry
DX: F33.2 Major depressive disorder, recurrent severe without psychotic features (principal); R45.851 Suicidal ideations; F17.210 Nicotine dependence, cigarettes, uncomplicated; F41.1 Generalized anxiety disorder; F12.10 Cannabis abuse, uncomplicated; F90.9 Attention-deficit hyperactivity disorder, unspecified type; Z79.899 Other long term (current) drug therapy